=== PATIENT | male | born 1975 | race Hispanic/Latino ===

== ENCOUNTER 2019-11-01 17:43 | Emergency (ER) | payer SELFPAY ==
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
[2019-11-01 19:32] VITALS: TEMP 98.8; O2SAT 100
[2019-11-01 19:33] VITALS: BP 145/85
== END 2019-11-01 19:28 | disposition home or self-care (01) ==
LOC: ER 17:43
DX: R07.89 Other chest pain (principal); V59.50XA Passenger in pick-up truck or van injured in collision with unspecified motor vehicles in traffic accident, initial encounter
CPT/HCPCS: 71046; 99284